=== PATIENT | male | born 1980 ===

== ENCOUNTER 2020-10-19 14:38 | Emergency (ER) | payer SELFPAY ==
[~2020-10-19] VITALS: Ht 188 cm; Wt 111.9 kg
[2020-10-19 14:56] VITALS: BP 178/121
[2020-10-19] MEDS ORDERED: IBUP-1984 PO (16:22)
[2020-10-19] MEDS ORDERED: CLIN300C70 PO (16:22)
--- NOTE | 2020-10-19 16:35 | NUR ---
Patient seen and assessed by provider.
== END 2020-10-19 16:42 | disposition home or self-care (01) ==
LOC: ER 14:38
DX: K08.89 Other specified disorders of teeth and supporting structures (principal); Z79.2 Long term (current) use of antibiotics; Z79.899 Other long term (current) drug therapy
CPT/HCPCS: 99283